=== PATIENT | male | born 1995 | race Caucasian/White ===

== ENCOUNTER 2016-11-11 15:33 | Emergency (ER) | payer OTHER ==
[~2016-11-11] VITALS: Ht 175.3 cm; Wt 71.5 kg
[~2016-11-11 15:33] MED LIST: IBUP-103 PO
[2016-11-11 15:40] VITALS: TEMP 36.9; Ht 175.3 cm; Wt 71.5 kg
[2016-11-11] MEDS ORDERED: ALBUTEROL HFA 8 GM INHALER INH STA (18:21)
[2016-11-11] MEDS ORDERED: LEVO-366 PO (18:23)
--- NOTE | 2016-11-11 18:25 | EMERGENCY ROOM VISIT NOTE ---
History First contact with patient: 16:26 Chief Complaint: SINUS CONGESTION/PRESSURE Stated Complaint: SINUS INFECTION Nursing Triage Summary: congestion and cough for the past 11 days. cough is non productive History of Present Illness The patient is a 21 year old male who presents to the Emergency Room via private vehicle with complaints of "sinus infection". The patient states that he has had sinus congestion for the past 11 days, to include sinus pressure, postnasal drip as well as a cough that is been mostly nonproductive. He states that at times he will cough up a little bit of mucus. He denies any fevers, chills, chest pain or shortness of breath. He states that he had this approximately 1 year ago, and unfortunately it developed into pneumonia. Review of Systems A complete 10-point Review of Systems was discussed with the patient, with pertinent positives and negatives listed in the History of Present Illness. All remaining Review of Systems questions can be considered negative unless otherwise specified. Past Medical/Surgical History Pneumonia. Family History Patient reports no known family medical history. Diabetes, heart disease, high blood pressure, kidney disease or stones. Social History Smoking Status: Never Smoker Housing Status: lives with roommate Occupation Status: student Patient lives locally with college roommates. He denies tobacco and alcohol use. Current/Historical Medications Scheduled Levofloxacin (Levaquin), 500 MG PO DAILY Physical Exam Vital Signs Date Time Temp Pulse Resp B/P (MAP) Pulse Ox O2 Delivery O2 Flow Rate FiO2 11/11/16 18:52 86 125/87 96 11/11/16 17:53 88 134/98 97 11/11/16 15:40 36.9 88 18 135/82 95 Room Air Physical Exam VITAL SIGNS - Vital signs and nursing notes were reviewed. Afebrile, blood pressure 135/82, nontachypneic cardiac and is saturating well on room air at 95% . GENERAL -21-year-old male appearing his stated age who is in no acute distress. Communicates well with provider and answers questions appropriately. SKIN - Without rashes. No petechial rashes. HEAD - NC/AT. EYES - PERRL with EOMI bilaterally. Sclera anicteric. Palpebral conjunctiva pink and moist with no injection noted. EARS - No deformities of external structures noted on gross examination bilaterally. No pain elicited with palpation of the tragus bilaterally. External auditory canals without discharge or otorrhea. Tympanic membranes pearly ansari without retraction or bulging. No fluid or purulent material visualized behind the TM. Handle of malleus, umbo, cone of light, pars tensa/ flaccid all easily visualized. NOSE - Midline and without cyanosis. No epistaxis or purulent drainage noted. Septum midline without deviation or septal hematoma noted. MOUTH/OROPHARYNX - Without perioral cyanosis. Buccal mucosa pink and moist and without leukoplakia. Tongue midline with equal elevation of palate bilaterally. No tonsillar hypertrophy, erythema, or exudates noted. Fair dentition noted. NECK - Neck with FROM. Supple to palpation. No lymphadenopathy noted. No nuchal rigidity. LUNGS - Chest wall symmetric without accessory muscle use, intercostals retractions, or central cyanosis. The left lower lung base exhibits decreased air movement, and rattling. CARDIAC - RRR with S1/S2. No murmur, rubs, or gallops appreciated. NEUROLOGIC - Cranial nerves II through XII grossly intact. Medical Decision & Procedures Medications Administered Medications (Trade) Dose Ordered Sig/Saundra Route Start Time Stop Time Status Last Admin Dose Admin Albuterol (Ventolin Hfa Inhaler) 2 puffs ONE STAT INH 11/11/16 18:21 11/11/16 18:22 DC 11/11/16 18:48 2 PUFFS Medical Decision Patient was seen and evaluated as above. He presents to us today with sinus congestion, and cough. He is nontoxic upon examination. He is afebrile. Benefits versus risk of obtaining chest x-ray was discussed with the patient, as well as the patient's parents as they were on speaker phone with the patient for a period of time. Decision was made to not obtain a chest x-ray. They did request to see a physician for a second opinion, therefore I spoke with Dr. Zhao, the attending physician. He also personally evaluated the patient. At this time we agreed the patient should be treated with Levaquin, as he had poor response in the past with azithromycin, as well as an inhaler such as albuterol to help his breathing with the cough. Again it is important to note that I do not suspect any concerning pneumonia, and if he does it is early/just developing. This was likely a viral process, however because the duration will treat with antibiotic. He appears stable for outpatient management, and was educated upon worrisome symptoms in which to return. I recommended he follows up with [facility] services in one week for recheck, or return here with worsening of his symptoms. He was educated upon worrisome symptoms in which to return, had questions prior to discharge, and was discharged home in good condition. In evaluation treatment this patient following differential diagnoses radiographs: Pneumonia, bronchitis, viral pharyngitis, meningitis, among others. Impression Primary Impression: Cough Additional Impression: Sinus congestion Departure Information Dispostion Home / Self-Care Condition GOOD Prescriptions Levofloxacin (Levaquin) 500 Mg Tab 500 MG PO DAILY for 7 Days, #7 TAB Prov: Himanshu Waldrop PA-C 11/11/16 Referrals [facility] (PCP) Patient Instructions My [facility] Additional Instructions You were seen in the emergency Department for sinus congestion, and cough. You have been prescribed Levaquin. This is 500 mg daily for the next 7 days. You have also been prescribed an albuterol inhaler. This is 1-2 puffs every 4- 6 hours as needed for cough. Please follow-up with your family doctor/[facility] services in the next week for a follow-up of your current symptoms. Please return to the emergency department with any new/concerning symptoms. Problem Qualifiers
[2016-11-11 18:52] VITALS: BP 125/87; PULSE 86; O2SAT 96
== END 2016-11-11 18:52 | disposition home or self-care (01) ==
LOC: C.EDB 15:34 → C.EDD 18:52
DX: R05 Cough (principal); J34.9 Unspecified disorder of nose and nasal sinuses; Z87.01 Personal history of pneumonia (recurrent); Z83.3 Family history of diabetes mellitus